=== PATIENT | female | born 1995 | race Asian ===

== ENCOUNTER 2016-03-25 06:45 | Emergency (ER) | payer OTHER ==
[~2016-03-25] VITALS: Ht 175.3 cm; Wt 89.0 kg
[~2016-03-25 06:45] MED LIST: LORTA5 PO
[2016-03-25 06:47] VITALS: BP 132/83; PULSE 98; RESP 18; TEMP 98; O2SAT 98
--- NOTE | 2016-03-25 07:23 | PD ---
HPI Chief Complaint: Complaint Time Seen by Provider: 07:09 Travel History International Travel<30 days: No Contact w/Intl Traveler<30days: No Traveled to known affect area: No History of Present Illness HPI 20yo F with no significant PMH presents to the ED with c/o dysuria, increased urinary frequency and hematuria for 1 day. Pt also with mild suprapubic pain for 1 day that is worst during urination. Denies any fever, chest pain, sob, n/ v, vaginal discharge or bleeding, or back pain. Pt had UTI a year ago and this feels similar. Denies any history of surgeries. PFSH Past Medical History ?: Not LMP: 01/2016 Social History Tobacco Use: No Allergies-Medications (Allergen,Severity, Reaction): Coded Allergies: No Known Allergies (Unverified , 03/25/16) Reported Meds & Prescriptions Reported Meds & Active Scripts Active Acetaminophen 500 Mg Tab 500 Mg PO Q6H PRN Ciprofloxacin (Ciprofloxacin HCl) 500 Mg Tab 500 Mg PO BID 7 Days Review of Systems Except as stated in HPI: all other systems reviewed are Neg Physical Exam Narrative GENERAL: 20yo F not in distress. SKIN: Warm and dry. HEAD: Atraumatic. Normocephalic. CARDIOVASCULAR: Regular rate and rhythm. No murmur appreciated. RESPIRATORY: No accessory muscle use. Clear to auscultation. Breath sounds equal bilaterally. GASTROINTESTINAL: Abdomen soft, non-tender, nondistended. No rebound tenderness or guarding. BACK: No CVA tenderness bilaterally. MUSCULOSKELETAL: No obvious deformities. No clubbing. No cyanosis. No edema. NEUROLOGICAL: Awake and alert. No obvious cranial nerve deficits. Motor grossly within normal limits. Normal speech. PSYCHIATRIC: Appropriate mood and affect; insight and judgment normal. Data Data Last Documented VS Vital Signs Date Time Temp Pulse Resp B/P Pulse Ox O2 Delivery O2 Flow Rate FiO2 03/25/16 07:18 16 03/25/16 06:47 98.0 98 132/83 98 Orders Urinalysis - C+S If Indicated (03/25/16 07:18) Ed Urine Pregnancytest Poc (03/25/16 07:18) Urine Culture (03/25/16 07:24) Ciprofloxacin (Cipro) (03/25/16 08:00) Labs Laboratory Tests Test 03/25/16 07:24 Urine Color YELLOW Urine Turbidity HAZY Urine pH 5.5 Urine Specific [place] 1.006 Urine Protein 30 mg/dL Urine Glucose (UA) NEG mg/dL Urine Ketones NEG mg/dL Urine Occult Blood LARGE Urine Nitrite NEG Urine Bilirubin NEG Urine Urobilinogen LESS THAN 2.0 MG/DL Urine Leukocyte Esterase LARGE Urine RBC 9 /hpf Urine WBC /hpf Urine WBC Clumps MOD Urine Squamous Epithelial 4 /hpf Cells Urine Bacteria MANY /hpf Urine Mucus FEW /lpf Microscopic Urinalysis Comment CULTURE INDICATED MDM Medical Decision Making Medical Screen Exam Complete: Yes Emergency Medical Condition: Yes Differential Diagnosis Cystitis vs.nephrolithiasis vs. UTI Narrative Course 20yo F not in distress here with urinary complaints consistent with UTI. Pt is nontoxic appearing and abdominal exam is benign. Pt does not want any pain medication right now. VS stable. Will check UA, and urine . UA showed large leukocyte and many urine bacteria. Urine negative. Pt given first dose of ciprofloxacin here. Return precautions given. Diagnosis Primary Impression: UTI (urinary tract infection) Qualified Code: N39.0 - Urinary tract infection with hematuria, site unspecified Patient Instructions: General Instructions Departure Forms: Tests/Procedures Additional Instructions: Please follow up with your PMD in 3-7 days. Return to the ED if your symptoms worsen. Scripts Acetaminophen 500 Mg [id number] Mg PO Q6H PRN (PAIN SCALE 1 TO 4) #20 TAB Ref 0 Prov:Kendal Smith DO 03/25/16 Ciprofloxacin 500 Mg [id number] Mg PO BID 7 Days Ref 0 Prov:Kendal Smith DO 03/25/16 Disposition: 01 DISCHARGE HOME Condition: Stable Kendal Smith DO Mar 25, 2016 07:23
[2016-03-25 07:43] LABS: BACTERIA, URINE MANY /hpf; BLOOD, URINE LARGE (NEG); COMMENT (UR) CULTURE INDICATED; CULTURE IF INDICATED CULTURE INDICATED; GLUCOSE,URINE NEG (NEG); KETONE, URINE NEG (NEG); MUCUS URINE FEW /lpf (OCC); NITRITE,URINE NEG (NEG); PH, URINE 5.5 (5.0-8.5); SQUAMOUS EPITHELIAL CELL URINE 4 /hpf (0-5); URINE COLOR YELLOW (YELLW/STRAW)
[2016-03-25] MEDS ORDERED: CIPR500T2 PO (07:57)
[2016-03-25] MEDS ORDERED: ACET500T3 PO (07:57)
[2016-03-25] MEDS ORDERED: CIPROFLOXACIN 500 MG TAB PO ONE (08:00)
== END 2016-03-25 09:50 | disposition home or self-care (01) ==
LOC: NEPE 06:45
DX: N39.0 Urinary tract infection, site not specified (principal); B96.20 Unspecified Escherichia coli [E. coli] as the cause of diseases classified elsewhere; R31.9 Hematuria, unspecified
CPT/HCPCS: 81001; 84703; 87077; 87086; 87186; 99283